=== PATIENT | female | born 1960 | race Caucasian/White ===

== ENCOUNTER 2019-12-26 18:23 | Emergency (ER) | payer BC, SELFPAY ==
--- NOTE | ~2019-12-26 | XR_ITS ---
EXAMINATION: XR foot LT min 3V EXAM DATE: 12/26/2019 21:11 INDICATION: Left foot toe pain, swelling, redness. TECHNIQUE: Left foot dorsoplantar, lateral and oblique projections obtained and reviewed. There is n o prior study for comparison. FINDINGS: Left metatarsal bones unremarkable. There are no acute fractures or dislocations identifi ed. There is no subcutaneous gas. The soft tissue is unremarkable. There are no radiopaque foreig n bodies. IMPRESSION: 1. Unremarkable left foot exam. Reviewed, dictated and finalized at location A.
[2019-12-26 19:24] VITALS: BP 118/85; PULSE 86; RESP 16; TEMP 36.8; O2SAT 99
[2019-12-26] MEDS: LIDOCAINE HCL 1% LOCAL INJ 20 ML VIAL INFILTRATE (21:35)
--- NOTE | 2019-12-26 21:44 | ED.EXTPRO ---
HPI - Extremity Problem General Chief complaint: Extremity Problem,Nontraumatic Stated complaint: L big toe swelling Time Seen by Provider: 12/26/19 20:59 Source: patient Mode of arrival: ambulatory Limitations: no limitations History of Present Illness HPI Narrative: This is a 59-year-old female that presents the emergency department for left great toe swelling and redness since this morning. Also reports pain in the area. Denies fever or abnormal drainage. Related Data Allergies Allergy/AdvReac Type Severity Reaction Status Date / Time cephalexin Allergy Unknown Verified 02/16/16 10:12 Review of Systems Review of Systems: Narrative: CONSTITUTIONAL: Denies fever SKIN: Reports redness and swelling All systems reviewed & are unremarkable except as noted in HPI and below PMFSH Past Medical History Medical History (Updated 12/26/19 @ 22:37 by Oanh Mota PA-C) History of diabetes mellitus History of hypertension Exam Narrative: Exam Narrative: GENERAL: Well-appearing, well-nourished, and in no acute distress. HEAD: Normocephalic, atraumatic. EYES: PERRLA and EOMI. EXTREMITIES: Normal range of motion. Left great toe with mild-moderate edema and erythema at the nail base, extending into the toe SKIN: Warm, dry, no rash. NEURO: No focal deficits. Alert and oriented x3. PSYCH: Normal mood and affect Course Vital Signs Vital signs: Vital Signs Temperature 98.3 F 12/26/19 19:24 Pulse Rate 86 12/26/19 19:24 Respiratory Rate 16 12/26/19 19:24 Blood Pressure 118/85 12/26/19 19:24 Pulse Oximetry 99 12/26/19 19:24 Temperature 98.3 F 12/26/19 19:24 Pulse Rate 86 12/26/19 19:24 Respiratory Rate 16 12/26/19 19:24 Blood Pressure 118/85 12/26/19 19:24 Pulse Oximetry 99 12/26/19 19:24 Procedures Abscess I/D lower extremity: Date of Incision: 12/26/19 Side (if applicable): left Local Anesthetic: lidocaine 1% Amount of anesthesia used (mL): 2 Technique: incised with #11 blade Packing used?: none I&D Results: Blood MDM - Extremity (Nontraumatic) MDM Narrative Medical decision making narrative: Patient presents the emergency department for cellulitis of left great toe. Attempt at I&D of possible abscess that only produced blood. Patient will be started on oral antibiotics. Was instructed to do warm soapy soaks of the toe. She is to follow up with her PCP. She was given warnings to return to the ER Imaging Data Radiologist's impression: ITS Impressions Foot X-Ray 12/26/19 21:12 IMPRESSION: 1. Unremarkable left foot exam. Critical Care Time Critical Care Time Critical Care Time: No Discharge Plan Discharge Clinical Impression: Paronychia Patient Disposition: Home, Self-Care Condition: Stable Instructions: Antibiotic Form, Paronychia (ED) Additional Instructions: Return if symptoms worsen or concerns: any increase in redness, swelling, pain, or fever over 101 Take antibiotics as directed. Apply antibiotic ointment. Soak the toe in warm soapy water for 20 minutes three times a day Follow up with your primary care doctor Prescriptions: New sulfamethoxazole-trimethoprim 800-160 mg tablet 1 tablet PO Q12H 7 Days Qty: 14 RF: 0 amoxicillin-pot clavulanate 875-125 mg tablet 1 tablet PO Q12H 7 Days Qty: 14 RF: 0 Follow-up/Referrals: Nico John MD [Primary Care Provider] - 3 Days
[2019-12-26 22:46] VITALS: BP 109/94; PULSE 81; RESP 16; TEMP 36.6; O2SAT 94
[2019-12-26] MEDS: AMOXICILLIN/CLAVULANATE K 875-125 MG TAB 1 TABLET PO (22:49)
== END 2019-12-26 22:54 | disposition home or self-care (01) ==
PROVIDERS: Emergency Provider Emergency Medicine; PCP Family Medicine
DX: L03.032 Cellulitis of left toe (principal); E11.9 Type 2 diabetes mellitus without complications; I10 Essential (primary) hypertension
CPT/HCPCS: 10060; 73630; 99283; A9270

== ENCOUNTER 2020-01-05 10:04 | Emergency (ER) | payer BC, SELFPAY ==
[2020-01-05 10:18] VITALS: BP 122/67; PULSE 80; RESP 16; TEMP 36.2; O2SAT 98
--- NOTE | 2020-01-05 10:42 | ED.DENTAL ---
HPI - Dental/Oral General Chief complaint: Dental/Oral Stated complaint: tongue issues Source: patient and RN notes reviewed Limitations: no limitations History of Present Illness HPI Narrative: The patient, is on several oral meds for diabetes and previously insulin, presents for med refill. Patient states about 10d ago she was treated for a paronychia of her toe with oral antibiotic course. Since then she has noticed vaginal itching consistent with prior yeast infection, and also has oral pharyngeal tongue involvement. She would like a refill of Diflucan, since after the Augmentin, she was given only 2 tablets fluconazole. Symptoms are mild mostly on her tongue [not buccal mucosa], no fever, sore throat, TA, trismus, odynophagia, reflux Related Data Home Medications Medication Instructions Recorded Confirmed atenolol 25 mg PO DAILY 01/05/20 01/05/20 atorvastatin 20 mg PO DAILY 01/05/20 01/05/20 dulaglutide [Trulicity] 1.5 mg SUBCUT WEEKLY 01/05/20 01/05/20 duloxetine [Cymbalta] 60 mg PO DAILY 01/05/20 01/05/20 fenofibrate 160 mg PO DAILY 01/05/20 01/05/20 metformin 1,000 mg PO BID 01/05/20 01/05/20 omega-3 acid ethyl esters 1 cap PO BID 01/05/20 01/05/20 terbinafine HCl 250 mg PO DAILY 01/05/20 01/05/20 Allergies Allergy/AdvReac Type Severity Reaction Status Date / Time cephalexin Allergy Unknown Diarrhea Verified 01/05/20 10:27 Review of Systems Review of Systems: Narrative: General/Constitutional: No weight loss,fever Eyes: N0: Redness,discharge Ears/Nose/Throat: No: Epistaxis,ear discharge Respiratory: Denies: Hemoptysis Gastrointestinal: No Vomiting, Bleeding-rectal Skin: No Lumps, REPORTS eruption Neurologic: No Focal Weakness,Sz Hematologic: Denies: Petechiae/Purpura Psychiatric: No: Suicida ideationl All Other Systems: Reviewed and Negative [facility] Past Medical History Medical History (Updated 01/05/20 @ 13:17 by Lambert Dyer MD) History of diabetes mellitus History of hypertension Comments At time of signature, agree with nursing past medical, surgical, social and family history. There is no relevant family history pertinent to the presenting complaint Exam Narrative: Exam Narrative: General Appearance: Well-nourished/overweight, Normocephalic, Conjunctiva clear Ear: External ear normal Nose: Normal nose, Nare clear Mouth/Throat: Normal appearing, mild white coating of tongue Neck Exam: Supple Respiratory: Airway patent, No respiratory distress Musculoskeletal: Moves all extremities, Non tender skin: Warm, Dry Neurological: A&O [id number] affect Course Vital Signs Vital signs: Vital Signs Temperature 97.2 F L 01/05/20 10:18 Pulse Rate 80 01/05/20 10:18 Respiratory Rate 16 01/05/20 10:18 Blood Pressure 122/67 01/05/20 10:18 Pulse Oximetry 98 01/05/20 10:18 Temperature 97.2 F L 01/05/20 10:18 Pulse Rate 80 01/05/20 10:18 Respiratory Rate 16 01/05/20 10:18 Blood Pressure 122/67 01/05/20 10:18 Pulse Oximetry 98 01/05/20 10:18 Discharge Plan Discharge Clinical Impression: Hx of candidiasis, Medication refill Patient Disposition: Home, Self-Care Condition: Stable Instructions: Oral Candidiasis (ED) Prescriptions: New fluconazole 150 mg tablet 150 mg PO 2XW Qty: 3 RF: 1 clotrimazole 10 mg melany 10 mg MUCOUS MEM TID Qty: 20 RF: 2 No Action atorvastatin 20 mg Tablet 20 mg PO DAILY RF: 0 atenolol 25 mg Tablet 25 mg PO DAILY RF: 0 terbinafine HCl 250 mg Tablet 250 mg PO DAILY RF: 0 metformin 1,000 mg Tablet 1,000 mg PO BID RF: 0 duloxetine [Cymbalta] 60 mg Capsule,Delayed Release(Dr/Ec) 60 mg PO DAILY RF: 0 omega-3 acid ethyl esters 1 gram Capsule 1 cap PO BID RF: 0 fenofibrate 160 mg Tablet 160 mg PO DAILY RF: 0 Trulicity 1.5 mg/0.5 mL Pen Injector 1.5 mg SUBCUT WEEKLY RF: 0 Interventions: Discharge Disposition Last Done: 01/05/20 11:05 Follow-up/Re
== END 2020-01-05 11:05 | disposition home or self-care (01) ==
PROVIDERS: Emergency Provider Emergency Medicine; PCP Family Medicine
DX: Z76.0 Encounter for issue of repeat prescription (principal); E11.9 Type 2 diabetes mellitus without complications; I10 Essential (primary) hypertension
CPT/HCPCS: 99211; G0463

== ENCOUNTER 2020-11-19 14:12 | Emergency (ER) | payer BC, SELFPAY ==
[2020-11-19 14:21] VITALS: BP 128/85; PULSE 81; RESP 16; TEMP 36.6; O2SAT 100
--- NOTE | 2020-11-19 15:03 | ED.URI ---
HPI - URI/Sore Throat General Chief Complaint: Upper Respiratory Infection Stated Complaint: Congestion,Cough Time Seen by Provider: 11/19/20 14:42 Source: patient and RN notes reviewed Mode of arrival: ambulatory Limitations: no limitations History of Present Illness HPI Narrative: Patient presents today complaining of 3-day history of body aches, subjective fever, chills with intermittent wheezing. Reports she did have some congestion and rhinorrhea initially, but these have resolved. She had a negative Covid 19 test yesterday at [facility]. States her symptoms have moved down into her chest and her cough is productive. She has been taking NyQuil and ibuprofen with some relief. 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 MD elicited complaint: cough Related Data Home Medications Medication Instructions Recorded Confirmed atenolol 25 mg PO DAILY 01/05/20 01/05/20 atorvastatin 20 mg PO DAILY 01/05/20 01/05/20 duloxetine [Cymbalta] 60 mg PO DAILY 01/05/20 01/05/20 fenofibrate 160 mg PO DAILY 01/05/20 01/05/20 metformin 1,000 mg PO BID 01/05/20 01/05/20 omega-3 acid ethyl esters 1 cap PO BID 01/05/20 01/05/20 Allergies Allergy/AdvReac Type Severity Reaction Status Date / Time cephalexin Allergy Unknown Diarrhea Verified 11/19/20 14:24 Review of Systems Review of Systems: CONSTITUTIONAL: Denies sweats.+ Aches, or, chills EYES: Denies visual changes, redness, or discharge. ENT: Denies rhinorrhea, congestion, sore throat, or otalgia. CARDIOVASCULAR: Denies chest pain, palpitations, or edema. RESPIRATORY: Denies dyspnea.+ Cough, wheezing GASTROINTESTINAL: Denies abdominal pain, nausea, vomiting, or diarrhea. GENITOURINARY: Denies dysuria or hematuria. SKIN: Denies rash, itching, or wounds. MUSCULOSKELETAL: Denies back pain, joint pain, or myalgia. NEUROLOGIC: Denies headache, numbness, tingling, or weakness. PSYCH: Denies depression or anxiety. [facility] Past Medical History Medical History History of diabetes mellitus History of hypertension Social History Social History (Updated 11/19/20 @ 15:16 by Sangita Osuna, [facility], ) Smoking status: Never smoker Comments At time of signature, I have reviewed and agree with nursing past medical, surgical, social and family history unless otherwise noted. Please see nursing chart for further information. There is no relevant family history pertinent to the presenting complaint Exam Narrative: GENERAL: Well-appearing, well-nourished, and in no acute distress. HEAD: Normocephalic, atraumatic. EYES: EOMI. No redness or drainage. Conjunctivae normal. ENT: Mucous membranes pink and moist. Nares congested. No rhinorrhea. TMs normal bilaterally. Throat normal. Uvula midline. NECK: Normal AROM. Supple. No lymphadenopathy. CHEST: No respiratory distress. Clear to auscultation. Deep breath elicits severe coughing episode. HEART: Regular rate and rhythm. No murmur appreciated. Normal peripheral pulses. EXTREMITIES: Normal range of motion. No edema. SKIN: Warm, dry, no rash. Capillary refill normal. Normal skin turgor. NEURO: No focal deficits. Alert and oriented x3. Gait steady. PSYCH: Normal affect. No signs of depression or anxiety. Course Vital Signs Vital signs: Vital Signs Temperature 98 F 11/19/20 14:21 Pulse Rate 81 11/19/20 14:21 Respiratory Rate 16 11/19/20 14:21 Blood Pressure 128/85 11/19/20 14:21 Pulse Oximetry 100 11/19/20 14:21 Temperature 98 F 11/19/20 14:21 Pulse Rate 81 11/19/20 14:21 Respiratory Rate 16 11/19/20 14:21 Blood Pressure 128/85 11/19/20 14:21 Pulse Oximetry 100 11/19/20 14:21 Reviewed. Pt has been instructed to follow up with her PCP regarding her elevated blood pressure today. MDM - URI/Sore Throat Differential Diagnosis Differential diagnosis: Likely upper respiratory infection, sinus
== END 2020-11-19 15:10 | disposition home or self-care (01) ==
PROVIDERS: Emergency Provider Nurse Practitioner
DX: J40 Bronchitis, not specified as acute or chronic (principal); J06.9 Acute upper respiratory infection, unspecified; E11.9 Type 2 diabetes mellitus without complications; I10 Essential (primary) hypertension; E78.00 Pure hypercholesterolemia, unspecified; F32.9 Major depressive disorder, single episode, unspecified; Z96.643 Presence of artificial hip joint, bilateral
CPT/HCPCS: 99213; G0463

== ENCOUNTER 2021-09-16 13:13 | Emergency (ER) | payer BC, SELFPAY ==
--- NOTE | ~2021-09-16 | XR_ITS ---
EXAMINATION: XR chest 2V DATE: 09/16/2021 13:44 INDICATION: Cough TECHNIQUE: PA and lateral views of the chest were obtained. COMPARISON: Chest radiograph dated 06/04/2016 FINDINGS: The lungs remain clear with no focal airspace opacities, pulmonary edema, pleural effusion or pneumot horax. The cardiomediastinal silhouette is normal. Instrumented lower cervical anterior spinal fusion with interbody bone graft cages and anterior plate and screw fixation. IMPRESSION: 1. No acute cardiopulmonary disease. Reviewed, dictated and finalized at location B.
[2021-09-16 13:19] VITALS: BP 98/64; PULSE 97; RESP 18; TEMP 36; O2SAT 98
--- NOTE | 2021-09-16 13:24 | ED.URI ---
HPI - URI/Sore Throat General Chief Complaint: Upper Respiratory Infection Stated Complaint: DRAINAGE/CHEST & BACK PAIN Time Seen by Provider: 09/16/21 13:24 Source: patient, RN notes reviewed and old records reviewed Mode of arrival: ambulatory Limitations: no limitations History of Present Illness HPI Narrative: 60-year-old female who presents to [facility] with complaints of 2-week history of initial fever, chills, sore throat, chest congestion with cough for the past 2 weeks. Patient states that she thought she was starting to get a little better till last night she noted increase in nasal congestion and also chest congestion. She reports that she has been taking DayQuil and did have an inhaler at home that she tried but it didn't seem to help her cough. Patient states that she felt feverish last night.Patient has had COVID immunizations and also flu shot. MD elicited complaint: cough, rhinorrhea and nasal congestion Onset (ago): week(s) (2) Able to tolerate fluids by mouth: Yes Treatments prior to arrival: other (Dayquil) Related Data Home Medications Medication Instructions Recorded Confirmed atenolol 25 mg tablet 25 mg PO DAILY 01/05/20 01/05/20 atorvastatin 20 mg tablet 20 mg PO DAILY 01/05/20 01/05/20 duloxetine 60 mg capsule,delayed 60 mg PO DAILY 01/05/20 01/05/20 release (Cymbalta) fenofibrate 160 mg tablet 160 mg PO DAILY 01/05/20 01/05/20 metformin 1,000 mg tablet 1,000 mg PO BID 01/05/20 01/05/20 omega-3 acid ethyl esters 1 gram 1 cap PO BID 01/05/20 01/05/20 capsule Allergies Allergy/AdvReac Type Severity Reaction Status Date / Time cephalexin Allergy Unknown Diarrhea Verified 11/19/20 14:24 Review of Systems Review of Systems: CONSTITUTIONAL: Reports episodes of fever, chills, or sweats. EYES: Denies visual changes, redness, or discharge. ENT: Positive for rhinorrhea, congestion, sore throat, no otalgia. CARDIOVASCULAR: Denies chest pain, palpitations, or edema. RESPIRATORY: Positive for cough or dyspnea. GASTROINTESTINAL: Denies abdominal pain, nausea, vomiting, or diarrhea. GENITOURINARY: Denies dysuria or hematuria. SKIN: Denies rash or itching. MUSCULOSKELETAL: Denies back pain, joint pain, or myalgia. NEUROLOGIC: Denies headache, numbness, or weakness. PSYCHIATRIC: Denies anxiety or depression. ON LICENSE OF [facility] Past Medical History Medical History (Updated 09/16/21 @ 14:06 by Marla Golden NP) History of diabetes mellitus History of hypertension Hyperlipidemia Surgical History Surgical History (Updated 09/16/21 @ 13:42 by Marla Golden NP) H/O cervical spine surgery C4-6 History of shoulder surgery right Social History Social History (Updated 09/16/21 @ 13:42 by Marla Golden NP) Smoking status: Never smoker Alcohol intake: current Alcohol use details: social Substance use type: does not use Living arrangements: with family Gender identity (if verbalized by the patient): Female Comments At time of signature, agree with nursing past medical, surgical, social and family history. There is no relevant family history pertinent to the presenting complaint Exam Narrative: GENERAL: Well-appearing, well-nourished, and in no acute distress. HEAD: Normocephalic, atraumatic. EYES: PERRLA and EOMI. ENT: Nares red with clear rhinorrhea no epistaxis. Mucous membranes moist.TM's normal with good light reflex, throat pink with no lesions or exudates or tonsil enlargement. NECK: Supple. no lymphadenopathy CHEST: Decreased to auscultation. No respiratory distress.acute cough SAO2 98% on room air HEART: Regular rate and rhythm. No murmur heard. Normal peripheral pulses. ABDOMEN: Soft, nontender, nondistended, normal active bowel sounds. EXTREMITIES: Normal range of motion. No edema. SKIN: Warm, dry, no rash. NEURO: No focal deficits. Alert and oriented x3. Course Course Level of Care: Express Care Visit Vital Signs Vital signs: Vital Signs Temperature 36.0
== END 2021-09-16 14:15 | disposition home or self-care (01) ==
PROVIDERS: Emergency Provider Registered Nurse; PCP Family Medicine
DX: J06.9 Acute upper respiratory infection, unspecified (principal); R05.1 Acute cough; E11.9 Type 2 diabetes mellitus without complications; I10 Essential (primary) hypertension; E78.5 Hyperlipidemia, unspecified
CPT/HCPCS: 71046; 99213; G0463

== ENCOUNTER 2021-09-25 08:21 | Outpatient (CLI) | payer BC, SELFPAY ==
--- NOTE | ~2021-09-25 | MM_ITS ---
EXAMINATION: MM screening [facility] BI w nasrin HISTORY: Screening mammogram TECHNIQUE: Craniocaudal and mediolateral oblique 3-D tomosynthesis images were obtained and synthetic 2-D images were generated. CAD analysis was submitted and interpreted. COMPARISON: 04/03/2019, 10/22/2015, 02/16/2012 BREAST PARENCHYMAL COMPOSITION: The breasts are almost entirely fatty. FINDINGS: There is no suspicious mass, calcification, or architectural distortion to suggest malignan cy in either breast. There has been no suspicious interval change. IMPRESSION: 1. No mammographic evidence of malignancy. 2. Recommend routine screening mammography in one year. BI-RADS Category 1: Negative Reviewed, dictated and finalized at location A.
== END 2021-09-25 08:22 | disposition home or self-care (01) ==
LOC: ANHIMG 08:24
PROVIDERS: PCP Family Medicine
DX: Z12.31 Encounter for screening mammogram for malignant neoplasm of breast (principal)
CPT/HCPCS: 77063; 77067

== ENCOUNTER 2022-04-23 08:16 | Outpatient (CLI) | payer BC, SELFPAY ==
[2022-04-23 09:32] LABS: Basophils Absolute Auto 0.1 K/mm3 (0.0-0.1); Eosinophils Absolute Auto 0.5 K/mm3 (0-0.3); Eosinophils Percent Auto 6.5 % (0-4.4); Hematocrit 42.4 % (37.0-47.0); Hemoglobin 13.5 g/dL (12.0-15.0); Immature Granulocyte Absolute 0.02 K/mm3 (0.00-0.031); Immature Granulocyte Percent A 0.3 % (0-0.5); Lymphocytes Absolute Auto 2.18 K/mm3 (0.9-3.2); Lymphocytes Percent Auto 29.9 % (18.3-44.2); Mean Corpuscular HGB Conc 31.8 g/dl (32-36); Mean Corpuscular Hemoglobin 26.1 pg (26-34); Mean Platelet Volume 9.6 fl (7.4-10.4); Monocytes Absolute Auto 0.8 K/mm3 (0.1-0.6); Monocytes Percent Auto 10.9 % (2.6-8.5); Neutrophils Absolute Auto 3.8 K/mm3 (1.3-6.7); Neutrophils Percent Auto 51.4 % (45.5-73.1); Platelet Count Result 379 k/mm3 (150-375); Red Blood Count 5.17 M/mm3 (4.2-5.4); Red Cell Distribution Width 14.9 % (11.5-14.5); White Blood Count 7.3 K/mm3 (4.5-10.0)
[2022-04-23 09:48] LABS: Alanine Aminotransferase 24 U/L (6-35); Albumin Level 4.5 g/dL (3.5-5.1); Alkaline Phosphatase 47 U/L (38-126); Anion Gap 10 mmol/L (8-16); Aspartate Amino Transferase 28 U/L (14-36); Bilirubin,Total 0.5 mg/dL (0.2-1.3); Blood Urea Nitrogen 17 mg/dL (7-17); Calcium 9.3 mg/dL (8.4-10.2); Carbon Dioxide 24 mmol/L (22-30); Chloride 104 mmol/L (98-107); Estimated Glomerular Filt Rate > 60; Glucose 204 mg/dL (65-110); Potassium 4.1 mmol/L (3.4-5.0); Sodium 138 mmol/L (137-145)
[2022-04-23 10:37] LABS: Creatinine Urine 224.4 mg/dL
[2022-04-23 10:42] LABS: MALB Creatinine Ratio 17.3 mg/g (0-30); Microalbumin Urine Random 38.9 mg/L (0-16.7)
[2022-04-23 10:44] LABS: Free T4 Free Thyroxine 0.97 ng/mL (0.78-2.19); Vitamin D 25 Hydroxy 57.8 ng/mL
[2022-04-28 20:27] LABS: Triiodothyronine T3 Free 2.9 pg/mL (2.3-4.2)
== END 2022-04-23 08:17 | disposition home or self-care (01) ==
LOC: ANHLAB 08:19
PROVIDERS: PCP Family Medicine; Visit Provider Family Medicine
DX: E78.3 Hyperchylomicronemia (principal); I10 Essential (primary) hypertension; E55.9 Vitamin D deficiency, unspecified; E11.65 Type 2 diabetes mellitus with hyperglycemia; E03.9 Hypothyroidism, unspecified
CPT/HCPCS: 36415; 80053; 82043; 82306; 84439; 84443; 84481; 85025

== ENCOUNTER 2023-02-03 08:16 | Emergency (ER) | payer BC, SELFPAY ==
[2023-02-03 08:25] VITALS: BP 141/62; PULSE 98; RESP 16; TEMP 37.2; O2SAT 96
--- NOTE | 2023-02-03 08:43 | ED.NECK ---
HPI - Neck Pain/Injury General Chief Complaint: Neck Pain/Injury Stated Complaint: Neck pain Time Seen by Provider: 02/03/23 08:32 Source: patient and RN notes reviewed Mode of arrival: ambulatory Limitations: no limitations History of Present Illness HPI Narrative: patient presents today complaining a 2 day history of left-sided neck pain. States he woke up in the middle of night with the pain. Denies injury or trauma. Reports slight radiation of the pain to her left shoulder. Denies numbness or tingling in the arm or hand. She currently rates her pain 5/10, which increases with movement of the neck. She has been taking ibuprofen without relief. She has also tried marijuana gummy without relief. History of cervical fusion at C4-6 in the past. Related Data Home Medications Medication Instructions Recorded Confirmed atenolol 25 mg tablet 25 mg PO DAILY 01/05/20 02/03/23 atorvastatin 20 mg tablet 20 mg PO DAILY 01/05/20 02/03/23 duloxetine 60 mg capsule,delayed 60 mg PO DAILY 01/05/20 02/03/23 release (Cymbalta) fenofibrate 160 mg tablet 160 mg PO DAILY 01/05/20 02/03/23 metformin 1,000 mg tablet 1,000 mg PO BID 01/05/20 02/03/23 omega-3 acid ethyl esters 1 gram 1 cap PO BID 01/05/20 02/03/23 capsule semaglutide 0.25 mg or 0.5 mg (2 0.25 mg subcut WEEKLY 02/03/23 02/03/23 mg/1.5 mL) subcutaneous pen injector Allergies Allergy/AdvReac Type Severity Reaction Status Date / Time cephalexin Allergy Unknown Diarrhea Verified 02/03/23 08:27 Review of Systems Review of Systems: CONSTITUTIONAL: Denies body aches, fever, chills, or sweats. EYES: Denies visual changes, redness, or discharge. ENT: Denies rhinorrhea, congestion, sore throat, or otalgia. CARDIOVASCULAR: Denies chest pain, palpitations, or edema. RESPIRATORY: Denies cough or dyspnea. GASTROINTESTINAL: Denies abdominal pain, nausea, vomiting, or diarrhea. GENITOURINARY: Denies dysuria or hematuria. SKIN: Denies rash, itching, or wounds. MUSCULOSKELETAL: Denies back pain. + neck pain NEUROLOGIC: Denies headache, numbness, tingling, or weakness. PSYCH: Denies depression or anxiety. [facility] Past Medical History Medical History History of diabetes mellitus History of hypertension Hyperlipidemia Surgical History Surgical History H/O cervical spine surgery C4-6 History of shoulder surgery right Social History Social History Smoking status: Never smoker Alcohol intake: current Alcohol use details: social Substance use type: does not use Living arrangements: with family Gender identity (if verbalized by the patient): Female Comments At time of signature, I have reviewed and agree with nursing past medical, surgical, social and family history unless otherwise noted. Please see nursing chart for further information. There is no relevant family history pertinent to the presenting complaint Exam Narrative: GENERAL: Well-appearing, well-nourished, and in no acute distress. HEAD: Normocephalic, atraumatic. EYES: EOMI. No redness or drainage. Conjunctivae normal. ENT: Mucous membranes pink and moist. NECK: Mild tenderness of the cervical paraspinal muscles. Distal sensation intact. Capillary refill normal. 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 Full range of motion of the left arm without pain. Patient has very limited range of motion of the neck due to pain. CHEST: No respiratory distress. EXTREMITIES: Normal range of motion. No edema. SKIN: Warm, dry, no rash. Capillary refill normal. Normal skin turgor. NEURO: No focal deficits. Alert and oriented x3. Gait steady. PSYCH: Normal affect. No signs of depression or anxiety. Course Course Level of Care: Express Care Visit Vital Signs Vital signs: Vital Signs Temperature 99 F
== END 2023-02-03 08:53 | disposition home or self-care (01) ==
PROVIDERS: Emergency Provider Nurse Practitioner; PCP Family Medicine
DX: M43.6 Torticollis (principal); E11.9 Type 2 diabetes mellitus without complications; I10 Essential (primary) hypertension; E78.5 Hyperlipidemia, unspecified
CPT/HCPCS: 99213; G0463

== ENCOUNTER 2023-03-01 15:00 | Outpatient (CLI) | payer BC, SELFPAY ==
--- NOTE | ~2023-03-01 | XR_ITS ---
XR hand RT min 3V DATE: 03/01/2023 15:20 INDICATION: Right hand pain following pulling weeds 3 weeks ago. TECHNIQUE: 3 views COMPARISON: None FINDINGS: There is mild osteoarthritis at the first carpometacarpal joint. There is mild osteoarthrit ic changes of the distal interphalangeal joints. No fracture, dislocation, periosteal reaction or bone destruction. No erosive change. IMPRESSION: Mild osteoarthritis Reviewed, dictated and finalized at location L. DOPTERIST IMPRESSION: Mild osteoarthritis
== END 2023-03-01 15:01 | disposition home or self-care (01) ==
PROVIDERS: PCP Family Medicine; Visit Provider Nurse Practitioner Adult Health
DX: M19.041 Primary osteoarthritis, right hand (principal)
CPT/HCPCS: 73130

== ENCOUNTER 2023-04-08 02:11 | Day surgery (SDC) | payer BC, SELFPAY ==
[2023-03-22 14:41] VITALS: BMI 31.8
--- NOTE | 2023-04-06 08:44 | SUR.PREOP ---
Patient called regarding upcoming procedure. Reviewed preop instructions, appointment times, and procedure prep.
--- NOTE | 2023-04-07 09:32 | WPDANESEPPF ---
Anes - Initial Pre Proc Eval Procedure: Operation Date: 04/08/23 08:30 Proposed Procedures p Colonoscopy - Oscar Tompkins MD Date/Time: 04/07/23 09:32 Surgeon: Oscar Tompkins MD Pre Op Diagnosis: hx colon polyps Patient Data Age: 62 Gender: F Height: 1.69 m Weight: 91 kg Allergies Allergy/AdvReac Type Severity Reaction Status Date / Time cephalexin Allergy Unknown Diarrhea Verified 04/08/23 07:33 Home Medications Medication Instructions Recorded Confirmed Type atenolol 25 mg tablet 25 mg PO DAILY 01/05/20 04/08/23 History atorvastatin 20 mg tablet 20 mg PO DAILY 01/05/20 03/22/23 History duloxetine 60 mg capsule,delayed 60 mg PO DAILY 01/05/20 03/22/23 History release (Cymbalta) fenofibrate 160 mg tablet 160 mg PO DAILY 01/05/20 03/22/23 History metformin 1,000 mg tablet 1,000 mg PO BID 01/05/20 03/22/23 History omega-3 acid ethyl esters 1 gram 1 cap PO BID 01/05/20 03/22/23 History capsule semaglutide 0.25 mg or 0.5 mg (2 0.25 mg subcut WEEKLY 02/03/23 04/08/23 History mg/1.5 mL) subcutaneous pen injector Patient hx anesthesia problems: none Family hx anesthesia problems: none Results Review: All pre-operative results and documents have been reviewed as part of the pre-operative evaluation. [facility] Past Medical History Medical History History of diabetes mellitus History of hypertension Hyperlipidemia Surgical History Surgical History H/O cervical spine surgery C4-6 History of shoulder surgery right Social History Social History Smoking status: Never smoker Alcohol intake: current Drinks per week: 4 Alcohol use details: social Substance use: never Substance use type: does not use Living arrangements: alone Gender identity (if verbalized by the patient): Female Spiritual care concerns: No Anes - Eval Final PreProcedure Day of Procedure 04/07/23 09:32 Patient weight: obese Heart: regular rate and rhythm Lungs: clear to auscultation Airway: Mallampati scale class II Neurological: alert and oriented Last oral intake: >/= 8 hours ASA classification: III Emergent: no Anesthetic plan: proceed Anesthesia type and monitoring: general GIVS and standard monitoring Results Review: All pre-operative results and documents have been reviewed as part of the pre-operative evaluation. Informed Consent: The patient's anesthetic plan and its attendant risks and benefits were discussed with the patient/family/POA. Questions were solicited and answers provided to the satisfaction of the patient/family/POA.
[2023-04-08 07:35] VITALS: BP 118/68; PULSE 70; RESP 16; TEMP 36.4; O2SAT 98
[2023-04-08] MEDS: LACTATED RINGERS 1,000 ML 150 ML IV CONT (07:43)
[2023-04-08 07:46] LABS: Glucose Point of Care 186 mg/dl (65-105)
--- NOTE | 2023-04-08 08:07 | P.HP_ITS ---
History of Present Illness History of Present Illness Consent: Risks, benefits, and alternatives have been discussed and questions answered. Patient agrees to proceed with procedure. Chief complaint: hx colon polyps Narrative: Asia Fu is a 62 year old female Presents for screening colonoscopy. Patient's current weight appetite and bowel movements are normal. Patient denies abdominal pain. He has had no bleeding. Family history noncontributory. Previous colonoscopy in 2016 revealed adenomatous colon polyps. Patient presents today for screening colonoscopy. Review of Systems Review of Systems: Review of systems noncontributory. [facility] Past Medical History Medical History History of diabetes mellitus History of hypertension Hyperlipidemia Surgical History Surgical History H/O cervical spine surgery C4-6 History of shoulder surgery right Social History Social History Smoking status: Never smoker Alcohol intake: current Drinks per week: 4 Alcohol use details: social Substance use: never Substance use type: does not use Living arrangements: alone Gender identity (if verbalized by the patient): Female Spiritual care concerns: No Meds Home Medications and Allergies Home Medications Medication Instructions Recorded Confirmed Type atenolol 25 mg tablet 25 mg PO DAILY 01/05/20 04/08/23 History atorvastatin 20 mg tablet 20 mg PO DAILY 01/05/20 03/22/23 History duloxetine 60 mg capsule,delayed 60 mg PO DAILY 01/05/20 03/22/23 History release (Cymbalta) fenofibrate 160 mg tablet 160 mg PO DAILY 01/05/20 03/22/23 History metformin 1,000 mg tablet 1,000 mg PO BID 01/05/20 03/22/23 History omega-3 acid ethyl esters 1 gram 1 cap PO BID 01/05/20 03/22/23 History capsule semaglutide 0.25 mg or 0.5 mg (2 0.25 mg subcut WEEKLY 02/03/23 04/08/23 History mg/1.5 mL) subcutaneous pen injector Allergies Allergy/AdvReac Type Severity Reaction Status Date / Time cephalexin Allergy Unknown Diarrhea Verified 04/08/23 07:33 Vital Signs Vital Signs - 24 hr 04/08/23 07:35 Temperature 97.6 F Pulse Rate 70 Respiratory Rate 16 Blood Pressure 118/68 Pulse Oximetry 98 Oxygen Delivery Room Air Exam Narrative: Physical exam reveals patient to be alert. Vital signs stable. HEENT exam is unremarkable. Patient is anicteric. Lungs are clear to auscultation and to percussion. Heart is without murmur or extra sounds. Abdomen bowel sounds are present soft nontender with no organomegaly. Digital external rectal exam normal. Assessment and Plan Assessment and plan (1) History of colon polyps: Code(s): Z86.010 - Personal history of colonic polyps Status: Acute Assessment and Plan: Patient has a prior history of adenomatous colon polyps. Plan for surveillance colonoscopy at this time. Further recommendations may be given after endoscopy.
[2023-04-08 08:36] VITALS: BP 101/54; PULSE 73; RESP 13; O2SAT 97
[2023-04-08 08:46] VITALS: BP 98/61; PULSE 72; RESP 22; O2SAT 100
[2023-04-08 08:56] VITALS: BP 117/57; PULSE 70; RESP 21; O2SAT 100
== END 2023-04-08 09:06 | disposition home or self-care (01) ==
PROVIDERS: PCP Family Medicine; Visit Provider Internal Medicine Gastroenterology
PROC: 0DJD8ZZ Inspection of Lower Intestinal Tract, Via Natural or Artificial Opening Endoscopic (ICD-10-PCS; CPT 45378; principal; 2023-04-08 08:30)
DX: Z12.11 Encounter for screening for malignant neoplasm of colon (principal); K63.5 Polyp of colon; K64.8 Other hemorrhoids; E11.9 Type 2 diabetes mellitus without complications; I10 Essential (primary) hypertension; E78.5 Hyperlipidemia, unspecified; E66.9 Obesity, unspecified; Z68.32 Body mass index [BMI] 32.0-32.9, adult; Z79.84 Long term (current) use of oral hypoglycemic drugs; Z79.85 Long-term (current) use of injectable non-insulin antidiabetic drugs
CPT/HCPCS: 45385; 82948; 88305; J2704; J7120

== ENCOUNTER 2023-06-07 00:38 | Emergency (ER) | payer BC, SELFPAY ==
--- NOTE | ~2023-06-07 | CT_ITS ---
CT of the Abdomen and Pelvis: Indication: Abdominal pain Technique: 2.5 mm axial scans were obtained through the abdomen and pelvis following intravenous adm inistration of 100 cc of Omnipaque 350. Dose reduction technique was used on this scan by utilizing a utomated exposure control and iterative reconstruction technique. The dose-length product (DLP) was 1 039.88 mGy-cm. Findings: Scans through the lung bases are unremarkable. The liver, spleen, pancreas, gallbladder, adrenals and kidneys are within normal limits. No evidence of aortic aneurysm. No lymphadenopathy. No bowel obstruction or bowel wall thickening. There is no evidence to suggest acute appendicitis. Images through the pelvis degraded by streak artifact from bilateral hip arthroplasties. Urinary blad jd grossly unremarkable. No definite pelvic mass seen. No ascites evident. Impression: No significant abnormalities seen. Reviewed, dictated and finalized at [facility]. [employer] POLITICAL HISTORY Impression: No significant abnormalities seen.
[2023-06-07 00:39] VITALS: BP 120/60; PULSE 101; RESP 16; TEMP 36.1; O2SAT 100
[2023-06-07 03:56] VITALS: BP 115/60; RESP 103; O2SAT 99
--- NOTE | 2023-06-07 04:05 | ECG_ITS ---
Measurements Intervals [place] Rate: 101 P: 31 NC: 151 QRS: 30 QRSD: 86 T: 11 QT: 333 QTc: 432 Interpretive Statements SINUS TACHYCARDIA POSSIBLE LEFT ATRIAL ENLARGEMENT [-0.1mV P-WAVE IN V1/V2] NONSPECIFIC ST & T-WAVE ABNORMALITY ABNORMAL RHYTHM ECG NO PREVIOUS ECG AVAILABLE FOR COMPARISON Electronically Signed On 06-07-2023 15:25:10 OPERATIONS SUPPORT COORDINATOR by Angela Grove M.D.
[2023-06-07 04:24] LABS: Glucose Point of Care 252 mg/dl (65-105)
[2023-06-07 04:30] LABS: Basophils Absolute Auto 0.1 K/mm3 (0.0-0.1); Basophils Percent Auto 0.4 % (0.2-1.2); Eosinophils Absolute Auto 0.1 K/mm3 (0-0.3); Eosinophils Percent Auto 0.5 % (0-4.4); Hematocrit 45.7 % (37.0-47.0); Hemoglobin 14.4 g/dL (12.0-15.0); Immature Granulocyte Absolute 0.06 K/mm3 (0.00-0.031); Immature Granulocyte Percent A 0.4 % (0-0.5); Lymphocytes Absolute Auto 0.37 K/mm3 (0.9-3.2); Lymphocytes Percent Auto 2.3 % (18.3-44.2); Mean Corpuscular HGB Conc 31.5 g/dl (32-36); Mean Corpuscular Hemoglobin 26.2 pg (26-34); Mean Corpuscular Volume 83.1 fl (80-100); Mean Platelet Volume 9.7 fl (7.4-10.4); Monocytes Absolute Auto 0.9 K/mm3 (0.1-0.6); Monocytes Percent Auto 5.4 % (2.6-8.5); Neutrophils Absolute Auto 14.8 K/mm3 (1.3-6.7); Platelet Count Result 365 k/mm3 (150-375); Red Cell Distribution Width 14.8 % (11.5-14.5); White Blood Count 16.2 K/mm3 (4.5-10.0)
[2023-06-07 04:41] LABS: Alanine Aminotransferase 27 U/L (6-35); Albumin Level 5.1 g/dL (3.5-5.1); Alkaline Phosphatase 59 U/L (38-126); Anion Gap 9 mmol/L (8-16); Aspartate Amino Transferase 35 U/L (14-36); Bilirubin,Total 0.8 mg/dL (0.2-1.3); Blood Urea Nitrogen 20 mg/dL (7-17); Calcium 10.3 mg/dL (8.4-10.2); Carbon Dioxide 27 mmol/L (22-30); Chloride 101 mmol/L (98-107); Estimated CRCL calculation 68 ml/min; Estimated Glomerular Filt Rate > 60; Glucose 239 mg/dL (65-110); Lipase 57 U/L (23-300); Potassium 4.2 mmol/L (3.4-5.0); Sodium 137 mmol/L (137-145)
[2023-06-07] MEDS: ONDANSETRON INJ 4 MG/2 ML VIAL IV PUSH ×2 (04:44→06:59)
[2023-06-07] MEDS: SODIUM CHLORIDE 0.9% IV 1,000 ML 999 ML IV CONT (04:44)
--- NOTE | 2023-06-07 04:44 | ED.GENADULT ---
HPI - General Adult General Chief complaint: Nausea/Vomiting/Diarrhea Stated complaint: vomiting, abdominal pain Time Seen by Provider: 06/07/23 04:34 History of Present Illness HPI narrative: 62-year-old female presenting to the emergency department for evaluation of epigastric pain that started at 8:00 PM and nausea and vomiting that started at 9:00 PM. Related Data Home Medications Medication Instructions Recorded Confirmed atenolol 25 mg tablet 25 mg PO DAILY 01/05/20 04/08/23 atorvastatin 20 mg tablet 20 mg PO DAILY 01/05/20 03/22/23 duloxetine 60 mg capsule,delayed 60 mg PO DAILY 01/05/20 03/22/23 release (Cymbalta) fenofibrate 160 mg tablet 160 mg PO DAILY 01/05/20 03/22/23 metformin 1,000 mg tablet 1,000 mg PO BID 01/05/20 03/22/23 omega-3 acid ethyl esters 1 gram 1 cap PO BID 01/05/20 03/22/23 capsule semaglutide 0.25 mg or 0.5 mg (2 0.25 mg subcut WEEKLY 02/03/23 04/08/23 mg/1.5 mL) subcutaneous pen injector Allergies Allergy/AdvReac Type Severity Reaction Status Date / Time cephalexin AdvReac Unknown Diarrhea, Verified 06/07/23 07:23 Vomiting Review of Systems Review of Systems: All systems reviewed & are unremarkable except as noted in HPI and below PMFSH Past Medical History Medical History History of diabetes mellitus History of hypertension Hyperlipidemia Surgical History Surgical History H/O cervical spine surgery C4-6 History of shoulder surgery right Social History Social History Smoking status: Never smoker Alcohol intake: current Drinks per week: 4 Alcohol use details: social Substance use: never Substance use type: does not use Living arrangements: alone Gender identity (if verbalized by the patient): Female Spiritual care concerns: No Exam Narrative: APPEARANCE: Well appearing, no pain, no distress, well-nourished. HEAD: normocephalic, atraumatic. EYES: PERRLA/EOMI, conjunctivae clear. NOSE: Normal no drainage NECK: Supple. No adenopathy, no masses. RESPIRATORY: Airway patent, respirations nonlabored. Clear to auscultation bilaterally, no rales, rhonchi, wheezing. CARDIOVASCULAR: Regular rate and rhythm without murmurs rubs or gallops. ABDOMINAL: Epigastric tenderness to palpation MUSCULOSKELETAL: Moves all extremities. Strength/ROM intact, No edema, No calf tenderness. NEURO: Alert. Cranial nerves II through XII intact. Grossly intact SKIN: Warm, dry. Normal Color Course Course Emergency Course: 62-year-old female presenting the emergency department for evaluation of epigastric pain. Patient did have improvement with her pain with the GI cocktail. Patient was afebrile with a leukocytosis of 16.2 and a stable hemoglobin. Patient had and no acute abnormalities her CMP other than hyperglycemia. UA was negative for infection CT showed no significant abnormalities. Patient was updated of the results of her workup appears comfortable with plan for discharge close follow-up. Patient was advised on taking omeprazole and following a gastritis diet. Patient was also encouraged close follow-up with GI. Vital Signs Vital signs: Vital Signs Temperature 97 F L 06/07/23 00:39 Pulse Rate 101 H 06/07/23 00:39 Respiratory Rate 16 06/07/23 00:39 Blood Pressure 120/60 06/07/23 00:39 Pulse Oximetry 100 06/07/23 00:39 Oxygen Delivery Room Air 06/07/23 00:39 Temperature 98.0 F 06/07/23 07:42 Pulse Rate 76 06/07/23 07:42 Respiratory Rate 16 06/07/23 07:42 Blood Pressure 110/69 06/07/23 07:42 Pulse Oximetry 100 06/07/23 07:42 Oxygen Delivery Room Air 06/07/23 03:56 Medical Decision Making Vital Signs Vital Signs: Vital Signs Temperature 97 F L 06/07/23 00:39 Pulse Rate 101 H 06/07/23 00:39 Respiratory
[2023-06-07] MEDS: HYDROmorphone HCL INJ (*CRX) 1 MG/ML SYR IV PUSH (04:47)
[2023-06-07] MEDS: PANTOPRAZOLE SODIUM IV 40 MG VIAL IV PUSH (04:48)
[2023-06-07 06:16] LABS: Appearance Urine Clear (Clear); Bilirubin Urine Negative (Negative); Blood Urine Negative (Negative); Color Urine Yellow (Yellow); Glucose Urine UA 2+ mg/dL (Negative); Ketones Urine Trace mg/dL (Negative); Leukocyte Esterase Ur Negative LEU/UL (Negative); Nitrate Urine Negative (Negative); Protein Urine Negative (Negative); Urobilinogen Urine 0.2 mg/dL (<2.0)
[2023-06-07 06:27] LABS: Add Urine Microscopic? NO; Specific Grav Ur 1.071 (1.001-1.035)
--- NOTE | 2023-06-07 06:57 | PC.NURSE ---
Pt c/o increase in nausea. EDP Dr. Jonathan GONZALES 4mg Zofran IVP.
--- NOTE | 2023-06-07 07:13 | PC.NURSE ---
Report given to RHODA Fraire at this time.
[2023-06-07] MEDS: BELLADONNA ALK/PHENOB ELIX 10 ML, MAG HYDROX/ALUMINUM HYD/SIMETH 30 ML, LIDOCAINE HCL 2... PO (07:40)
[2023-06-07 07:42] VITALS: BP 110/69; PULSE 76; RESP 16; TEMP 36.7; O2SAT 100
== END 2023-06-07 07:49 | disposition home or self-care (01) ==
PROVIDERS: Emergency Provider Emergency Medicine; PCP Family Medicine
DX: R10.13 Epigastric pain (principal); E11.9 Type 2 diabetes mellitus without complications; I10 Essential (primary) hypertension; E78.5 Hyperlipidemia, unspecified; Z79.85 Long-term (current) use of injectable non-insulin antidiabetic drugs; Z79.84 Long term (current) use of oral hypoglycemic drugs
CPT/HCPCS: 36415; 74177; 80053; 81003; 82948; 83690; 85025; 93005; 96361; 96374; 96375; 96376; 99284; A9270; C9113; J1170; J2405; J7030; Q9967

== ENCOUNTER 2024-03-14 09:05 | Outpatient (CLI) | payer BC, SELFPAY ==
[2024-03-14 10:16] LABS: Cholesterol 158 mg/dL (0-200); HDL Direct 46 mg/dL; Triglycerides 157 mg/dL (<150)
[2024-03-14 10:22] LABS: Creatinine Urine 170.8 mg/dL
[2024-03-14 10:23] LABS: MALB Creatinine Ratio 4.6 mg/g (0-30); Microalbumin Urine Random 7.9 mg/L (0-16.7)
[2024-03-14 10:26] LABS: LDL Cholesterol Direct 84 mg/dL
[2024-03-14 10:35] LABS: Vitamin D 25 Hydroxy 49.2 ng/mL
== END 2024-03-14 09:06 | disposition home or self-care (01) ==
LOC: ANHLAB 09:10
PROVIDERS: PCP Family Medicine
DX: E78.5 Hyperlipidemia, unspecified (principal); E11.65 Type 2 diabetes mellitus with hyperglycemia
CPT/HCPCS: 36415; 80061; 82043; 82306

== ENCOUNTER 2024-10-16 07:46 | Outpatient (CLI) | payer BC, SELFPAY ==
--- NOTE | ~2024-10-16 | CT_ITS ---
Clinical Indication: Epigastric CT Scan of the Chest and Abdomen with Contrast: Technique: Contiguous sections were acquired throughout the chest and abdomen after intravenous admin istration of 100 cc of Omnipaque 350. Dose reduction technique was used on this scan by utilizing au tomated exposure control and iterative reconstruction technique. The dose-length product (DLP) was 93 6.12 mGy-cm. Comparison: 06/07/2023 Findings: There is no evidence of any significant mediastinal, hilar or axillary lymphadenopathy. The mediastin al soft tissues appear normal. There is no evidence of pleural or pericardial effusion. The lungs are clear. No pulmonary nodules or infiltrates are noted. The liver, spleen, pancreas, gallbladder, adrenals and kidneys are within normal limits. No evidence of aortic aneurysm. No lymphadenopathy. Visualized bowel loops are unremarkable. No ascites. Impression: No significant abnormalities seen. Reviewed, dictated and finalized at [facility]. Impression: No significant abnormalities seen.
[2024-10-16 08:27] LABS: Estimated Glomerular Filt Rate 56
== END 2024-10-16 07:47 | disposition home or self-care (01) ==
LOC: MICIMG 07:47
PROVIDERS: PCP Family Medicine; Visit Provider Nurse Practitioner Family
DX: R10.13 Epigastric pain (principal)
CPT/HCPCS: 71260; 74160; Q9967

== ENCOUNTER 2024-11-05 08:10 | Outpatient (CLI) | payer BC, SELFPAY ==
--- NOTE | ~2024-11-05 | US_ITS ---
US right upper quadrant INDICATION: Abnormal liver enzymes. Epigastric pain. PROCEDURE: Realtime right upper abdominal ultrasound. COMPARISON: 01/23/2015 FINDINGS: The pancreas is normal without focal mass or pancreatic ductal dilation. Liver echotexture is increased, consistent with fatty infiltration. There is normal directional flow in the portal ve in. The gallbladder is normal without stones, gallbladder wall thickening or pericholecystic fluid. Comm on bile duct measures 4 mm. No sonographic Reilly's sign. IMPRESSION: 1: Fatty infiltration of the liver. Reviewed, dictated and finalized at location [facility].
== END 2024-11-05 08:11 | disposition home or self-care (01) ==
LOC: MICIMG 08:10
PROVIDERS: PCP Family Medicine; Visit Provider Nurse Practitioner Family
DX: R79.89 Other specified abnormal findings of blood chemistry (principal); K76.0 Fatty (change of) liver, not elsewhere classified
CPT/HCPCS: 76705